=== PATIENT | female | born 1990 | race Caucasian/White ===

== ENCOUNTER → 2018-06-12 | Outpatient (CLI) | payer BC ==
[~2018-06-12] MED LIST: ETON1VAG7 VG; NORE0.3516 PO; NORE0.3529 PO; PREN-127 PO
[2018-06-12 16:43] LABS: PLATELET COUNT, AUTOMATED 236 K/uL (150-450)
== END ==
LOC: LAB 15:18
PROVIDERS: ATTEND Student in an Organized Health Care Education/Training Program
DX: Z34.91 Encounter for supervision of normal pregnancy, unspecified, first trimester (principal); B96.89 Other specified bacterial agents as the cause of diseases classified elsewhere
CPT/HCPCS: 36415; 81001; 85025; 86592; 86703; 86762; 86850; 86900; 86901; 87088; 87340

== ENCOUNTER → 2018-06-29 | Outpatient (CLI) | payer BC | LOC: LAB 08:09 | PROVIDERS: ATTEND Student in an Organized Health Care Education/Training Program | DX: Z11.8 Encounter for screening for other infectious and parasitic diseases (principal); Z11.3 Encounter for screening for infections with a predominantly sexual mode of transmission | CPT/HCPCS: 87491; 87591 ==

== ENCOUNTER → 2018-09-11 | Outpatient (CLI) | payer BC ==
--- NOTE | 2018-09-11 09:58 | RADIOLOGY IMAGING REPORT ---
FACILITY: [facility] PATIENT NAME: Betty Pedraza : 1990 MR: [id number] V: [id number] EXAM DATE: ORDERING PHYSICIAN: CAITLIN MARRERO TECHNOLOGIST[place] [facility] [place] Pedra[place] : 1990 Visit/Account:[id number] Date of Sevice: 09/11/2018 OB Ultrasound > 14 weeks with anatomic evaluation HISTORY: Anatomical survey. COMPARISON STUDIES: None available FINDINGS: Intrauterine gestations: one presentation: Breech heart rate: 158 bpm Amniotic fluid index: 15.00 cm Largest amniotic fluid pocket 4.61 cm Placenta: Posterior/fundal without previa Uterus: gravid, otherwise normal Maternal adnexa: Unremarkable Cervix: long and closed Gestational Parameters: BPD: 4.55 cm 19 weeks and 6 days. 46 percentile HC: 17.86 cm 20 weeks and 3 days. 64th percentile AC: 15.21 cm 20 weeks and 3 days. 64th percentile FL: 3.36 cm 20 weeks and 4 days. 67th percentile Average ultrasound age (AUA): 20 weeks and 3 days. Estimated gestational age based on LMP datin weeks and 6 days DOTTY: 01/26/2019 based on today's ultrasound age Estimated weight (EFW): 354 g +/-52 g EFW: 78 percentile based on LMP dating Anatomic Survey: Intracranial structures, 4-chamber heart, stomach, kidneys, urinary bladder, spine, and 3-vessel cord are unremarkable. Two upper and two lower extremities visualized. Placental cord insertion is not w ell visualized secondary to positioning. IMPRESSION: 1. Single live intrauterine gestation; estimated ultrasound age 20 weeks and 3 days. 2. Suboptimal visualization of the placental cord insertion secondary to positioning. Otherwise, unr emarkable anatomic survey Report Dictated By: Stephen Knight MD at 09/11/2018 9:47 AM Report E-Signed By: Stephen Knight MD at 09/11/2018 9:51 AM WSN:[email or web address]
== END ==
LOC: RAD 08:19
PROVIDERS: ATTEND Student in an Organized Health Care Education/Training Program
DX: Z34.92 Encounter for supervision of normal pregnancy, unspecified, second trimester (principal)